=== PATIENT | female | born 1970 | race Two or more races ===

== ENCOUNTER 2019-05-12 13:32 | Emergency (ER) | payer OTHER ==
[~2019-05-12] VITALS: Ht 162.6 cm; Wt 88.5 kg
== END 2019-05-12 17:12 | disposition home or self-care (01) ==
LOC: ER 13:32
DX: D69.0 Allergic purpura (principal); R21 Rash and other nonspecific skin eruption

== ENCOUNTER 2019-05-18 13:25 | Emergency (ER) | payer OTHER ==
[~2019-05-18] VITALS: Ht 162.6 cm; Wt 93.4 kg
== END 2019-05-18 14:16 | disposition home or self-care (01) ==
LOC: ER 13:25
DX: R21 Rash and other nonspecific skin eruption (principal)